=== PATIENT | male | born 1940 | race Caucasian/White ===

== ENCOUNTER 2020-09-18 15:46 | Outpatient (CLI) | payer MEDICARE, SELFPAY | END 2020-09-18 15:47 | disposition home or self-care (01) | LOC: ANHCOVIDVC 15:46 | PROVIDERS: PCP Family Medicine | DX: Z23 Encounter for immunization (principal) | CPT/HCPCS: 0001A; 91300 ==

== ENCOUNTER 2020-10-09 15:48 | Outpatient (CLI) | payer MEDICARE, SELFPAY | END 2020-10-09 15:49 | disposition home or self-care (01) | LOC: ANHCOVIDVC 15:48 | PROVIDERS: PCP Family Medicine | DX: Z23 Encounter for immunization (principal) | CPT/HCPCS: 0002A; 91300 ==

== ENCOUNTER → 2021-04-23 11:42 | Outpatient (CLI) | payer MEDICARE, SELFPAY ==
--- NOTE | ~2021-04-23 | XR_ITS ---
EXAMINATION: XR shoulder LT min 2V DATE: 04/23/2021 12:20 INDICATION: Left shoulder pain. Other enthesopathies, not elsewhere classified. TECHNIQUE: 4 views of left shoulder were obtained. COMPARISON: Left shoulder radiographs 07/04/2008 FINDINGS: Bone alignment is normal. No fracture. There is narrowing of the subacromial space, consist ent with rotator cuff tear. There is severe osteoarthritis of glenohumeral joint and acromioclavicula r joint. IMPRESSION: 1. Polyarticular osteoarthritis. 2. Rotator cuff tear. Reviewed, dictated and finalized at location A.
--- NOTE | ~2021-04-23 | XR_ITS ---
EXAMINATION: XR shoulder RT min 2V DATE: 04/23/2021 12:21 INDICATION: Other enthesopathies, not elsewhere classified. Right shoulder pain. TECHNIQUE: 4 views of right shoulder were obtained. COMPARISON: Right shoulder radiograph 01/03/2012 FINDINGS: Bone alignment is normal. No fracture. There is mild osteoarthritis of glenohumeral joint a nd severe osteoarthritis of acromioclavicular joint. IMPRESSION: 1. Polyarticular osteoarthritis. Reviewed, dictated and finalized at location A.
== END ==
PROVIDERS: PCP Family Medicine; Visit Provider Physician Assistant
DX: M77.8 Other enthesopathies, not elsewhere classified (principal); M19.012 Primary osteoarthritis, left shoulder; M19.011 Primary osteoarthritis, right shoulder; M75.102 Unspecified rotator cuff tear or rupture of left shoulder, not specified as traumatic
CPT/HCPCS: 73030

== ENCOUNTER 2022-03-11 08:56 | Outpatient (CLI) | payer MEDICARE, SELFPAY ==
--- NOTE | ~2022-03-11 | CT_ITS ---
EXAMINATION: CT shoulder LT wo con DATE: 03/11/2022 09:18 INDICATION: Rotator cuff arthropathy of left shoulder. Preop. TECHNIQUE: Computed tomography (CT) of the left shoulder was performed without intravenous contrast. Automated exposure control and iterative reconstruction technique were employed. The dose-length prod uct was 457.39 mGy-cm. COMPARISON: Left shoulder radiographs 02/01/2022. FINDINGS: The acromion undersurface is curved in morphology (type II). There is superior subluxation of humeral head with narrowing of the subacromial space and remodeling of the undersurface of the acr omion, consistent with chronic rotator cuff tear with cuff arthropathy. There is severe osteoarthriti s of acromioclavicular joint. There is severe glenohumeral joint osteoarthritis including bone volume loss of the glenoid. There is a large glenohumeral joint effusion. Supraspinatus and infraspinatus m uscle bellies are small with moderate fatty atrophy. There is mild fatty atrophy of subscapularis mus aby belly. IMPRESSION: 1. Severe glenohumeral joint osteoarthritis including bone volume loss of glenoid. 2. Severe acromioclavicular joint osteoarthritis. 3. Chronic full-thickness rotator cuff tear with cuff arthropathy. 4. Large glenohumeral joint effusion. Reviewed, dictated and finalized at location A. IMPRESSION: 1. Severe glenohumeral joint osteoarthritis including bone volume loss of gleno id. 2. Severe acromioclavicular joint osteoarthritis. 3. Chronic full-thickness rotator cuff tear with cuff arthropathy. 4. Large glenohumeral joint effusion.
== END 2022-03-11 08:57 | disposition home or self-care (01) ==
PROVIDERS: PCP Family Medicine; Visit Provider Orthopaedic Surgery
DX: M19.012 Primary osteoarthritis, left shoulder (principal); M75.102 Unspecified rotator cuff tear or rupture of left shoulder, not specified as traumatic; M25.412 Effusion, left shoulder
CPT/HCPCS: 73200

== ENCOUNTER 2022-04-01 13:42 | Outpatient (CLI) | payer MEDICARE, SELFPAY ==
--- NOTE | 2022-04-01 14:50 | ECG_ITS ---
Measurements Intervals Alexis Rate: 49 P: 83 DC: 254 QRS: 37 QRSD: 102 T: 112 QT: 443 QTc: 403 Interpretive Statements SINUS BRADYCARDIA WITH FIRST DEGREE AV BLOCK DELAYED PRECORDIAL R/S TRANSITION T WAVE ABNORMALITY IN ANTEROLATERAL LEADS- CONSIDER ISCHEMIA BASELINE ARTIFACT- I, II, III, AVR, AVL, AVF, V1-V6 ABNORMAL ECG NO PREVIOUS ECG AVAILABLE FOR COMPARISON Electronically Signed On 04-01-2022 20:50:11 CDT by Alireza Herrera D.O.
[2022-04-01 15:17] LABS: Basophils Absolute Auto 0.1 K/mm3 (0.0-0.1); Basophils Percent Auto 0.7 % (0.2-1.2); Eosinophils Absolute Auto 0.4 K/mm3 (0-0.3); Eosinophils Percent Auto 3.9 % (0-4.4); Hematocrit 41.7 % (42.0-52.0); Hemoglobin 14.9 g/dL (14.0-18.0); Immature Granulocyte Absolute 0.03 K/mm3 (0.00-0.031); Immature Granulocyte Percent A 0.3 % (0-0.5); Lymphocytes Absolute Auto 2.88 K/mm3 (0.9-3.2); Lymphocytes Percent Auto 29.1 % (18.3-44.2); Mean Corpuscular HGB Conc 35.7 g/dl (32-36); Mean Corpuscular Hemoglobin 33.3 pg (26-34); Mean Corpuscular Volume 93.1 fl (80-100); Mean Platelet Volume 10.7 fl (7.4-10.4); Monocytes Absolute Auto 0.7 K/mm3 (0.1-0.6); Monocytes Percent Auto 6.8 % (2.6-8.5); Neutrophils Absolute Auto 5.8 K/mm3 (1.3-6.7); Neutrophils Percent Auto 59.2 % (45.5-73.1); Platelet Count Result 190 k/mm3 (150-375); Red Blood Count 4.48 M/mm3 (4.6-6.20); Red Cell Distribution Width 14.6 % (11.5-14.5); White Blood Count 9.9 K/mm3 (4.5-10.0)
[2022-04-01 15:35] LABS: Anion Gap 12 mmol/L (8-16); Blood Urea Nitrogen 20 mg/dL (9-20); Calcium 9.3 mg/dL (8.4-10.2); Carbon Dioxide 28 mmol/L (22-30); Chloride 99 mmol/L (98-107); Estimated Glomerular Filt Rate > 60; Glucose 102 mg/dL (65-110); Potassium 2.9 mmol/L (3.4-5.0); Sodium 139 mmol/L (137-145)
== END 2022-04-01 13:43 | disposition home or self-care (01) ==
LOC: ANHSURGERY 13:49
PROVIDERS: Anesthesiology; Visit Provider Orthopaedic Surgery
DX: M12.812 Other specific arthropathies, not elsewhere classified, left shoulder (principal); I10 Essential (primary) hypertension; Z79.899 Other long term (current) drug therapy; Z01.818 Encounter for other preprocedural examination; I44.0 Atrioventricular block, first degree
CPT/HCPCS: 36415; 80048; 85025; 87081; 93005

== ENCOUNTER 2022-04-04 07:53 | Outpatient (CLI) | payer MEDICARE, SELFPAY ==
[2022-04-04 19:34] LABS: Anion Gap 12 mmol/L (8-16); Blood Urea Nitrogen 20 mg/dL (9-20); Calcium 9.9 mg/dL (8.4-10.2); Carbon Dioxide 29 mmol/L (22-30); Chloride 98 mmol/L (98-107); Estimated Glomerular Filt Rate > 60; Glucose 104 mg/dL (65-110); Potassium 3.4 mmol/L (3.4-5.0); Sodium 139 mmol/L (137-145)
== END 2022-04-04 07:54 | disposition home or self-care (01) ==
PROVIDERS: PCP Family Medicine; Visit Provider Family Medicine
DX: E87.6 Hypokalemia (principal)
CPT/HCPCS: 36415; 80048

== ENCOUNTER 2022-04-22 01:22 | Day surgery (SDC) | payer MEDICARE, SELFPAY ==
--- NOTE | 2022-04-01 14:03 | PC.NURSE ---
PRE-OP INSTRUCTIONS, PLEASE READ CAREFULLY Report to the Outpatient Waiting Room, entrance under the green pavilion located off [facility], at time _1000_ on date _04/22/22_. OR Time: _1200_. Time changes happen often and if your time is changed the preop area will call you the afternoon before. - You and your visitor will be asked to self-screen and do not enter if you have any COVID symptoms. - A mask is required within the hospital. - Only one visitor and NO children visitors are allowed at this time. - The patient visitor is requested to leave or wait in car when not with patient due to restrictions. - VISITING HOURS 10AM-8PM, PARK IN FRONT PARKING LOT AND USE MAIN HOSPITAL ENTRANCE Patients may have clear liquids (water, carbonated beverages, clear teas, apple juice) until 3 hours prior to surgery (0900 AM) with a maximum of 20 ounces. - No food from midnight until time of surgery Take the following medications with a SIP of water the morning of surgery: _AMLODIPINE_ Medications to discontinue per DR. LEONARDO - _ASPIRIN - 7 DAYS PRIOR TO SURGERY, Date to take last dose 04/14/22_ Medications to discontinue per ANESTHESIA - _OMEGA 3 - 3 DAYS PRIOR TO SURGERY, Date to take last dose 04/18/22 Please no deodorant, or body powder the day of surgery. No jewelry (including any body piercings) or valuables the day of surgery, leave them at home. Please take a shower or bath the night before, or the morning of, surgery with an antibacterial soap. Wear comfortable, loose fitting clothing. Children are encouraged to wear pajamas. - Jewelry must be removed prior to entering the operating room. Rings and piercings that are not removed may be cut off. - The hospital will not accept responsibility for valuables. - Please leave all valuables, including medications, at home the day of surgery. If you are going home after surgery, a licensed pile driver operator helper must drive you home. - NO public transportation without another adult. - We recommend that an adult stay with you for 24 hours following discharge. - We also recommend that you do not drive, make important decision, drink alcoholic beverages, or take any drugs that were not prescribed by your health care provider for at least 24 hours after your discharge time. Follow any additional instructions given to you from your surgeon. If you or anyone in your household have experienced Covid symptoms in the past week, please notify your surgeon or the nurse liaison at the phone number below for possible testing. Instructions given to _PT_and asked if any additional questions and then verbalized understanding. Patient advised to call surgeon office or pre surgery nurse liaison [phone] if any additional questions.
[2022-04-01 14:25] VITALS: BP 134/76; PULSE 56; RESP 20; TEMP 36.9; O2SAT 97; BMI 29.7
--- NOTE | 2022-04-19 15:22 | WPDANESEPPF ---
Anes - Initial Pre Proc Eval Procedure: Operation Date: 04/22/22 12:00 Proposed Procedures p Left Reverse Total Shoulder Arthroplasty - Mart Blank MD Date/Time: 04/19/22 15:22 Surgeon: Mart Blank MD Pre Op Diagnosis: Rot Cuff Arthropathy Left Shoulder Patient Data Age: 81 Gender: M Height: 1.68 m Weight: 83.6 kg Last Vital Signs Temp 36.9 C 04/01/22 14:25 Pulse 56 L 04/01/22 14:25 Resp 20 04/01/22 14:25 BP 134/76 04/01/22 14:25 Pulse Ox 97 04/01/22 14:25 O2 Del Method Room Air 04/01/22 14:25 Allergies Allergy/AdvReac Type Severity Reaction Status Date / Time Sulfa (Sulfonamide Allergy Intermediate Rash Verified 04/22/22 10:31 Antibiotics) Home Medications Medication Instructions Recorded Confirmed Type aspirin 81 mg tablet,delayed 81 mg PO DAILY 02/01/20 04/22/22 History release (Adult Low Dose Aspirin) magnesium oxide 400 mg PO DAILY 02/01/20 04/22/22 History pyridoxine (vitamin B6) 100 mg 100 mg PO DAILY 02/01/20 04/22/22 History tablet allopurinol 300 mg tablet See Rx Instructions .Route 09/21/21 04/22/22 Rx .COMPLEX #90 tabs amlodipine 5 mg tablet See Rx Instructions .Route 09/21/21 04/22/22 Rx .COMPLEX #90 tabs indapamide 2.5 mg tablet See Rx Instructions .Route 09/21/21 04/22/22 Rx .COMPLEX #90 tabs simvastatin 40 mg tablet See Rx Instructions .Route 09/21/21 04/22/22 Rx .COMPLEX #90 tabs omega-3 fatty acids 1,000 mg PO DAILY 04/01/22 04/22/22 History omeprazole 20 mg capsule,delayed See Rx Instructions .Route 04/03/22 04/22/22 Rx release .COMPLEX #90 caps ascorbate calcium (vitamin C) 500 600 mg PO DAILY 04/15/22 04/22/22 History mg tablet vitamin B complex 1 tablet PO DAILY 04/15/22 04/22/22 History Patient hx anesthesia problems: none Family hx anesthesia problems: none Results Review: All pre-operative results and documents have been reviewed as part of the pre-operative evaluation. FORMERLY [facility] Past Medical History Medical History (Updated 04/19/22 @ 15:23 by Edwin Jernigan MD) History of gallbladder disease Hypertension Kidney disease Mixed hyperlipidemia Pre-diabetes Surgical History Surgical History H/O heart artery stent H/O hernia repair History of tonsillectomy Family History Family History Father Family history of cardiovascular disease Family history of arthritis Patient's father is , Onset Age: 83 Sibling Family history of kidney disease Acute myocardial infarction Mother Family history of sudden Social History Social History Smoking status: Never smoker Second hand tobacco smoke exposure: No Alcohol intake: current Alcohol use details: 1 or 2 beers a year. Substance use: never Substance use type: does not use Living arrangements: with family Spiritual care concerns: No Anes - Eval Final PreProcedure Day of Procedure 04/19/22 15:22 Patient weight: obese Heart: regular rate and rhythm Lungs: clear to auscultation and normal air movement Airway: Mallampati scale class II Neurological: alert and oriented Last oral intake: >/= 8 hours ASA classification: III Emergent: no Anesthetic plan: proceed Anesthesia type and monitoring: general ETT Results Review: All pre-operative results and documents have been reviewed as part of the pre-operative evaluation. Informed Consent: The patient's anesthetic plan and its attendant risks and benefits were discussed with the patient/family/POA. Questions were solicited and answers provided to the satisfaction of the patient/family/POA.
[2022-04-22] VITALS (11 sets, daily range): BP systolic 102–121; BP diastolic 64–78; PULSE 52–68; RESP 12–20; TEMP 35.9–36.5; O2SAT 91–98
--- NOTE | ~2022-04-22 | XR_ITS ---
EXAMINATION: XR shoulder LT min 2V DATE: 04/22/2022 15:22 INDICATION: Reverse oxiq-ibi-peoezx total left shoulder arthroplasty. Postop. TECHNIQUE: 2 views of left shoulder were obtained. COMPARISON: Left shoulder radiographs 02/01/2022 FINDINGS: There is a reverse uwmy-vae-psvgij total left shoulder arthroplasty in near-anatomic alignm ent. No fracture. There is severe acromioclavicular joint osteoarthritis. There is gas in the soft ti ssues, consistent with recent surgery. A surgical drain is noted. IMPRESSION: 1. Reverse wkwn-gge-lcggev total left shoulder arthroplasty in near-anatomic alignment. Reviewed, dictated and finalized at location B. IMPRESSION: 1. Reverse yhpf-imp-qzyaty total left shoulder arthroplasty in near-anatomic al ignment.
--- NOTE | 2022-04-22 10:39 | WPDANESPNB ---
Anes - Peripheral Nerve Block Date/Time: 04/22/22 10:39 I have discussed with the patient/family/POA the placement of a peripheral nerve block for post-operative pain management, including associated risks, benefits, complications, and side effects. Alternative methods of post-operative analgesia were detailed. Questions were solicited and answers provided to the satisfaction of the patient/family/POA. Time-Out: A pre-procedural Time-Out was completed immediately before starting the procedure and confirmed: Patient Identification, Site, Procedure, Patient Position and the Availability of Requisite Equipment. Clinical Indications: Acute post-operative pain management requested by the operative surgeon. Nerve Block Insertion Note Anes-nerve block: supraclavicular left Patient position: supine Skin prep: chlorhexidine Needle: 22 gauge, stimulating, insulated echogenic needle. Needle length: 80 mm Technique: ultrasound (in plane) Injectate: bupivacaine 0.5% with epi 5 mcg/ml (20cc) Observations: tolerated well Complications: none Procedure start time:: 1200 Procedure end time:: 1205
[2022-04-22] MEDS: LACTATED RINGERS 1,000 ML 30 ML IV CONT ×2 (10:45→15:07)
[2022-04-22] MEDS: ACETAMINOPHEN 500 MG TABLET 1000 MG PO (10:51)
[2022-04-22] MEDS: TRANEXAMIC ACID 1,000MG/ISO100 1,000 MG/100 ML BAG 200 MG IVPB (11:45)
--- NOTE | 2022-04-22 11:53 | WPDHPUPDATE1 ---
History and Physical Update Update Date/Time: 04/22/22 11:53 History and Physical has been reviewed, including an updated exam of the patient. There are NO changes in the patient's condition. Risks, benefits, and alternatives have been discussed and questions answered. Patient agrees to proceed with procedure.
[2022-04-22] MEDS: ceFAZolin 2 GM/D5W 50 ML 2 GM/50 ML BAG IVPB ×2 (12:10→20:01)
[2022-04-22] MEDS: HYDROGEN PEROXIDE 3% SOLN(*SP) 473 ML BOTTLE 20 ML IRRIGATION (13:04)
[2022-04-22] MEDS: VANCOMYCIN HCL 1,000 MG VIAL 1000 MG TOPICAL (14:37)
--- NOTE | 2022-04-22 15:32 | W.PM.PROC2 ---
Procedure Note - Detailed Date of Procedure 04/22/22 Pre-op Diagnosis Rot Cuff Arthropathy Left Shoulder Post-op Diagnosis Same Procedure Performed Reverse total shoulder arthroplasty, left. Surgeon Mart Blank MD Airline Mechanic Sabrina Quiroz PA-C Anesthesia General and Regional (Interscalene block.) Findings Extensive erosive arthritis with massive rotator cuff tear. Chronic thickening of the bursa. Large osteophytes. Bone quality good. Mild to moderate superior and mild posterior erosion. Description of Procedure The patient was given an interscalene block in the preoperative area. Preoperative antibiotics were given. The patient was transferred to the operating room and a general anesthetic was administered. The beach chair position was used at 45 degrees. All bony prominences were padded. The head was carefully stabilized on the [facility] heading repairer. A sterile prep and drape was performed in the usual manner with ChloraPrep. A longitudinal incision was created at the anterior shoulder just lateral to the deltopectoral interval. Hydrogen peroxide was placed on the incision and then rinsed after one minute. Careful dissection was performed to expose the interval and protect the cephalic vein. The vein was retracted medially. A subscapularis tenotomy was performed. The inferior capsule was released, exposing the humeral head. Osteophytes were removed. Care was taken to stay on bone to protect the axillary nerve. The anatomic head cut was taken with the oscillating saw. The guide pin was placed, central drilling performed, and the broach trial inserted. The neck anteversion and inclination were carefully assessed. The cut protector was placed, and attention was turned to the glenoid. Retractors were placed. Releases were carried out for exposure. The subscapularis was mobilized, the inferior capsule and long head of triceps released, and the superior and middle glenohumeral ligaments released as well. Labral tissue was resected as needed. The sizing template was used to assess the baseplate position low on the glenoid. A guide pin was placed. Minimal reaming was used to accomplish a flat surface without violating the subchondral bone. Version was corrected according to preoperative templating. The 5 degree augment was used at 01:00 o'clock. Slight eccentric reaming was performed to increase inferior tilt another 5?. The boss was drilled, and the real component was impacted into position. Supplemental locking screws were placed centrally, superiorly, and inferiorly. The glenosphere was impacted into the taper. The proximal humerus was reamed for the inset component. The humeral components were trialed. The real humeral stem, tray, and insert were impacted into position. The shoulder was copiously irrigated periodically with pulsatile lavage. The shoulder was reduced and stability confirmed. 1 gram of Vancomycin powder was placed in the joint. The biceps tenodesis was incorporated with the pectoralis tendon repair. The deltopectoral space was reapproximated with number 1 Vicryl. The remaining tissue was closed with 0 Quill and 2-0 Quill running suture and steri-strips. A sterile silver occlusive dressing and shoulder immobilizer were placed. The patient was transferred to the recovery room. Physician medical library assistant, Sabrina Quiroz PA-C, required for surgery; including patient positioning, draping, tissue retraction, maintaining instrument position, wound closure, and dressing placement. Implants Shoulder Innovations reverse TSA size 1 stem. +3 polyethylene insert. +6mm 5 degree augmented baseplate. 36 mm glenosphere. Estimated Blood Loss 100 Drains No Pathology None sent Complications No immediate complications Condition Stable Disposition PACU [facility] Billing Surgery - Charge Forward: Surgery Billing
--- NOTE | 2022-04-22 16:09 | SUR.PHASEI ---
Floor RN has to call back for report.
[2022-04-22] MEDS: SENNA/DOCUSATE SODIUM TABLET 2 TAB PO (18:11)
[2022-04-22] MEDS: allopurinoL 300 MG TABLET PO (18:11)
[2022-04-22] MEDS: SIMVASTATIN 20 MG TABLET 40 MG PO (18:11)
[2022-04-22] MEDS: INDAPAMIDE 2.5 MG TABLET PO (18:11)
[2022-04-22] MEDS: ASPIRIN 81 MG ENTERIC TABLET PO (20:02)
[2022-04-23 01:09] VITALS: BP 122/60; PULSE 61; RESP 18; TEMP 36.5; O2SAT 95
[2022-04-23] MEDS: ceFAZolin 2 GM/D5W 50 ML 2 GM/50 ML BAG IVPB ×2 (04:16→11:21)
[2022-04-23 05:06] LABS: Basophils Percent Auto 0.2 % (0.2-1.2); Hematocrit 39.1 % (42.0-52.0); Hemoglobin 13.6 g/dL (14.0-18.0); Immature Granulocyte Absolute 0.08 K/mm3 (0.00-0.031); Immature Granulocyte Percent A 0.5 % (0-0.5); Lymphocytes Absolute Auto 1.44 K/mm3 (0.9-3.2); Lymphocytes Percent Auto 9.5 % (18.3-44.2); Mean Corpuscular HGB Conc 34.8 g/dl (32-36); Mean Corpuscular Hemoglobin 32.5 pg (26-34); Mean Corpuscular Volume 93.3 fl (80-100); Mean Platelet Volume 10.2 fl (7.4-10.4); Monocytes Absolute Auto 0.7 K/mm3 (0.1-0.6); Monocytes Percent Auto 4.9 % (2.6-8.5); Neutrophils Absolute Auto 12.9 K/mm3 (1.3-6.7); Neutrophils Percent Auto 84.9 % (45.5-73.1); Platelet Count Result 209 k/mm3 (150-375); Red Blood Count 4.19 M/mm3 (4.6-6.20); Red Cell Distribution Width 13.9 % (11.5-14.5); White Blood Count 15.2 K/mm3 (4.5-10.0)
[2022-04-23 05:14] VITALS: BP 126/72; PULSE 63; RESP 16; TEMP 36.7; O2SAT 96
[2022-04-23 05:19] LABS: Anion Gap 12 mmol/L (8-16); Blood Urea Nitrogen 14 mg/dL (9-20); Calcium 8.8 mg/dL (8.4-10.2); Carbon Dioxide 27 mmol/L (22-30); Chloride 96 mmol/L (98-107); Estimated CRCL calculation 45 ml/min; Estimated Glomerular Filt Rate > 60; Glucose 139 mg/dL (65-110); Potassium 3.7 mmol/L (3.4-5.0); Sodium 135 mmol/L (137-145)
[2022-04-23] MEDS: allopurinoL 300 MG TABLET PO (09:20)
[2022-04-23] MEDS: MAGNESIUM OXIDE 400 MG TABLET PO (09:20)
[2022-04-23] MEDS: SENNA/DOCUSATE SODIUM TABLET 2 TAB PO (09:20)
[2022-04-23] MEDS: amLODIPine BESYLATE 5 MG TABLET PO (09:20)
[2022-04-23] MEDS: PANTOPRAZOLE 40 MG TABLET PO (09:20)
[2022-04-23] MEDS: INDAPAMIDE 2.5 MG TABLET PO (09:20)
[2022-04-23] MEDS: SIMVASTATIN 20 MG TABLET 40 MG PO (09:20)
[2022-04-23] MEDS: polyethylene glycoL 3350 17 GM POWD.PACK PO (09:22)
--- NOTE | 2022-04-23 09:50 | PM.DS ---
DS: Admitting Diagnosis Discharge Date 04/23/22 Admitting Diagnosis Left shoulder rotator cuff arthropathy. DS: Discharge Diagnosis Discharge Diagnosis (1) Status post reverse total arthroplasty of left shoulder: Code(s): Z96.612 - Presence of left artificial shoulder joint Status: Acute Assessment and Plan: Postop day 1: Left reverse total shoulder arthroplasty. Patient tolerated procedure well. No complications. Pain manageable with pain medication. No numbness or tingling. Drain removed. We had a lengthy discussion regarding postoperative wound care, limitations, expectations, and exercises. Patient shows good understanding. He has had initial physical therapy and is tolerating it well. DVT prophylaxis: Continue normal dose of aspirin. Pain medication: Percocet. Patient has followup appointment with Dr. Blank in 3 weeks. DS: Summary Hospital Course Hospital Course: Patient tolerated procedure well. Has had initial PT/OT. Drain removed. Status at Discharge Functional status at discharge: independent ambulation Overall status at discharge: patient is progressing back to baseline Time Spent with Patient Time attestation: Total time spent providing and/or coordinating discharge services: Exam Narrative: Overweight 81 y/o male. Resting comfortably in bed. Wearing sling. Dressing dry and intact with no drainage. Drain removed. Mild swelling. No ecchymosis. No erythema. No hematoma. Range of motion limited due to pain. Neurologic status intact. No varicosities. Distal pulses palpable. DS: Data Data Completed and Pending Labs on day of discharge: Labs from last 24 hours 04/23/22 04/23/22 04/22/22 04:52 04:52 10:28 WBC 15.2 H RBC 4.19 L Hgb 13.6 L Hct 39.1 L MCV 93.3 MCH 32.5 MCHC 34.8 RDW 13.9 Plt Count 209 MPV 10.2 Immature Gran % (Auto) 0.5 Neut % (Auto) 84.9 H Lymph % (Auto) 9.5 L Callahan % (Auto) 4.9 Eos % (Auto) 0.0 Baso % (Auto) 0.2 Lymph # (Auto) 1.44 Callahan # (Auto) 0.7 H Eos # (Auto) 0.0 Baso # (Auto) 0.0 Abs Immat Gran (auto) 0.08 H Absolute Neuts (auto) 12.9 H Absolute Nucleated RBC 0.0 Nucleated RBC % 0.0 Sodium 135 L Potassium 3.7 Chloride 96 L Carbon Dioxide 27 Anion Gap 12 BUN 14 D Creatinine 1.00 Estim Creat Clear Calc 45 Estimated GFR > 60 Glucose 139 H Calcium 8.8 Blood Type O Positive Antibody Screen Negative Discharge Plan Discharge Patient Disposition: Home, Self-Care Discharge Instructions: See green instruction sheets. Stand Alone Forms: General Discharge Instructions Follow-up/Referrals: Sabrina Quiroz PA [Physician Data Engineer] - Discharge Medications: New oxycodone-acetaminophen 5-325 mg tablet 1 - 2 tablet PO Q4-6H MDD 6 PRN (Reason: pain) Qty: 30 0RF Continued pyridoxine (vitamin B6) 100 mg tablet 100 mg PO DAILY aspirin [Adult Low Dose Aspirin] 81 mg tablet,delayed release (DR/EC) 81 mg PO DAILY Label Comments: HS magnesium oxide 400 mg magnesium tablet 400 mg PO DAILY ascorbate calcium (vitamin C) 500 mg tablet 600 mg PO DAILY vitamin B complex Tablet 1 tablet PO DAILY Label Comments: in morning omega-3 fatty acids Capsule 1,000 mg PO DAILY indapamide 2.5 mg tablet See Rx Instructions .ROUTE .COMPLEX Qty: 90 3RF Dose Instruction: TAKE 1 TABLET DAILY Rx Instructions: TAKE 1 TABLET DAILY allopurinol 300 mg tablet See Rx Instructions .ROUTE .COMPLEX Qty: 90 3RF Dose Instruction: TAKE 1 TABLET DAILY Rx Instructions: TAKE 1 TABLET DAILY amlodipine 5 mg tablet See Rx Instructions .ROUTE .COMPLEX Qty: 90 3RF Dose Instruction: TAKE 1 TABLET DAILY Rx Instructions: TAKE 1 TABLET DAILY simvastatin 40 mg tablet See Rx Instructions .ROUTE .COMPLEX Qty: 90 3RF
[2022-04-23 10:36] VITALS: BP 124/74; PULSE 64; RESP 16; TEMP 36.4; O2SAT 97
--- NOTE | 2022-04-23 14:36 | P.PNAN_ITS ---
Anes - Prog Note Post-Op Date/Time: 04/23/22 14:36 Cardiovascular status: normal Respiratory status: normal Airway patency: baseline Mental status: baseline Post-Op hydration status: normal Vital Signs: Last Vital Signs Temp 97.6 F 04/23/22 10:36 Pulse 64 04/23/22 10:36 Resp 16 04/23/22 10:36 BP 124/74 04/23/22 10:36 Pulse Ox 97 04/23/22 10:36 O2 Del Method Room Air 04/23/22 09:46 O2 Flow Rate 8 04/22/22 15:35 Pain Score (VAS): 07/30 I/O: Intake & Output 04/22/22 04/23/22 04/23/22 23:59 07:59 15:59 Intake Total 620 600 410 Output Total 180 60 Balance 620 420 350 Laboratory Tests 04/23/22 04:52 04/23/22 04:52 04/23/22 04/23/22 04:52 04:52 WBC 15.2 H RBC 4.19 L Hgb 13.6 L Hct 39.1 L MCV 93.3 MCH 32.5 MCHC 34.8 RDW 13.9 Plt Count 209 MPV 10.2 Immature Gran % (Auto) 0.5 Neut % (Auto) 84.9 H Lymph % (Auto) 9.5 L Buchanan % (Auto) 4.9 Eos % (Auto) 0.0 Baso % (Auto) 0.2 Lymph # (Auto) 1.44 Buchanan # (Auto) 0.7 H Eos # (Auto) 0.0 Baso # (Auto) 0.0 Abs Immat Gran (auto) 0.08 H Absolute Neuts (auto) 12.9 H Absolute Nucleated RBC 0.0 Nucleated RBC % 0.0 Sodium 135 L Potassium 3.7 Chloride 96 L Carbon Dioxide 27 Anion Gap 12 BUN 14 D Creatinine 1.00 Estim Creat Clear Calc 45 Estimated GFR > 60 Glucose 139 H Calcium 8.8 Post-procedural complaints: none Patient Feedback: Patient satisfied with anesthetic care.
== END 2022-04-23 14:15 | disposition home or self-care (01) ==
LOC: ANHSURGERY 09:59 → ANH2MED 16:19
PROVIDERS: Physician Assistant Surgical; PCP Emergency Medicine; Visit Provider Orthopaedic Surgery
PROC: (CPT 23472; principal; 2022-04-22 12:00)
DX: M12.812 Other specific arthropathies, not elsewhere classified, left shoulder (principal); M25.712 Osteophyte, left shoulder; G89.18 Other acute postprocedural pain; I10 Essential (primary) hypertension; E78.2 Mixed hyperlipidemia; N28.9 Disorder of kidney and ureter, unspecified; R73.03 Prediabetes; Z95.5 Presence of coronary angioplasty implant and graft; E66.9 Obesity, unspecified; Z68.28 Body mass index [BMI] 28.0-28.9, adult; Z79.82 Long term (current) use of aspirin
CPT/HCPCS: 23472; 64415; 36415; 73030; 80048; 85025; 86850; 86900; 86901; 97110; 97161; 97165; 97535; A4565; A9270; J0131; J0171; J0690; J1100; J2250; J2270; J2405; J2704; J2795; J3370; J7120

== ENCOUNTER 2022-10-07 09:21 | Outpatient (CLI) | payer MEDICARE, SELFPAY ==
--- NOTE | 2022-10-07 11:00 | NEURO_ITS ---
Impression: # Complains of numbness of left hand. # Severe left Carpal Tunnel Syndrome. # Mild left ulnar neuropathy across the elbow. 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 Motor Nerve Conduction Upper Extremities Median Nerve Conduction Velocity (m/sec) Terminal Latency (msec) Response Voltage(mV) Elbow-Wrist Wrist Elbow Wrist Right Left 114 13.4 .9 .4 Ulnar Nerve Conduction Velocity (m/sec) Terminal Latency (msec) Response Voltage(mV) Above Elbow Below Elbow Wrist Above Elbow Below Elbow Wrist Right Left 45 55 3.0 4 4 5 F-Wave Latency Median (ms) Ulnar (ms) Right Left 32.3 28.8 Sensory Nerve Conduction Upper Extremities Median Nerve Stimulation Terminal Latency (msec) Wrist/Digit Response Voltage (uV) Wrist Right Left 7.1/7.2 7/10 Ulnar Nerve Stimulation Terminal Latency (msec) Wrist/Digit Response Voltage (uV) Wrist Right Left 2.9 14 Radial Nerve Terminal Latency (msec) Response Voltage(mV) Right Left 2.3 9 Left Right Muscles Examined Fibrillation Fasciculation Scarcity Voltage Duration Left Right Left Right Left Right Left Right Left Right Deltoid Biceps X Brachioradialis Triceps X Pronator Teres X Ext Indicis X Ext Digitorum X Abd Poll Brev ++ + Reduced Decreased >12ms X 1st Dorsal Interosseus X Abd Dig Min Reduced >12ms MTDD
== END 2022-10-07 09:22 | disposition home or self-care (01) ==
LOC: ANHNEURO 09:23
PROVIDERS: PCP Emergency Medicine; Visit Provider Physician Assistant Surgical
DX: R20.0 Anesthesia of skin (principal); G56.02 Carpal tunnel syndrome, left upper limb; G56.22 Lesion of ulnar nerve, left upper limb
CPT/HCPCS: 95886; 95909

== ENCOUNTER 2022-11-19 01:11 | Day surgery (SDC) | payer MEDICARE, SELFPAY ==
[2022-11-08 13:16] VITALS: BMI 28.3
--- NOTE | 2022-11-08 13:25 | PC.NURSE ---
Report to the Outpatient Waiting Room, entrance under the green pavilion located off [facility], at time _1200__ on date _11/19/22_. Planned Procedure Time: __2PM . Time changes happen often and if your time is changed the preop area will call you the afternoon before. - You and your visitor will be asked to self-screen and do not enter if you have any COVID symptoms. - A mask is optional within the hospital at this time. Patients may have clear liquids (water, carbonated beverages, clear teas, apple juice) until 3 hours prior to surgery (1100 AM) with a maximum of 20 ounces. - No food from midnight until time of surgery - Infants may have breast milk until 4 hours before surgery, formula 6 hours prior to surgery. - Children will be allowed to drink immediately following surgery. If applicable, please bring a bottle or sippy cup to assist with drinking. Juice, water, soda, and popsicles are readily available. For infants on formula, please bring formula the day of surgery. Pacifiers are allowed. Take the following medications with a SIP of water the morning of surgery: DO NOT STOP ANY OF YOUR OTHER PRESCRIPTION MEDICATIONS PRIOR TO SURGERY ?EXCEPT THE FOLLOWING Medications to discontinue per DR. LEONARDO - _ASPIRIN 7 DAYS PRIOR TO SURGERY, Date to take last dose 11/11/22_ Medications to discontinue per ANESTHESIA - _VITAMINS/SUPPLEMENTS 3 DAYS PRIOR TO SURGERY, Date to take last dose 11/15/22_ Please no make-up, nail dutch, hairspray, perfume, deodorant, or body powder the day of surgery. No jewelry (including any body piercings) or valuables the day of surgery, leave them at home. Please take a shower or bath the night before, or the morning of, surgery with an antibacterial soap. Wear comfortable, loose fitting clothing. Children are encouraged to wear pajamas. - Jewelry must be removed prior to entering the operating room. Rings and piercings that are not removed may be cut off. - The hospital will not accept responsibility for valuables. - Please leave all valuables, including medications, at home the day of surgery. If you are going home after surgery, a licensed van driver must drive you home. - NO public transportation without another adult if you receive anesthesia. - We recommend that an adult stay with you for 24 hours following discharge. - We also recommend that you do not drive, make important decision, drink alcoholic beverages, or take any drugs that were not prescribed by your health care provider for at least 24 hours after your discharge time. For Pediatric surgeries, we recommend two adults accompany the child home. Follow any additional instructions given to you from your surgeon. If you or anyone in your household have experienced Covid symptoms in the past week, please notify your surgeon or the nurse liaison at the phone number below for possible testing. Telephone instructions given to _PT'S SPOUSE (ARMANDO)_and asked if any additional questions and then verbalized understanding. Patient advised to call surgeon office or pre surgery nurse liaison [phone] if any additional questions.
--- NOTE | 2022-11-18 15:29 | WPDANESEPPF ---
Anes - Initial Pre Proc Eval Procedure: Operation Date: 11/19/22 14:00 Proposed Procedures p Left Carpal Tunnel Release - Mart Blank MD Date/Time: 11/18/22 15:29 Surgeon: Mart Blank MD Pre Op Diagnosis: Lt Carpal Tunnel Syn Patient Data Age: 82 Gender: M Height: 1.68 m Weight: 79.5 kg Allergies Allergy/AdvReac Type Severity Reaction Status Date / Time Sulfa (Sulfonamide Allergy Intermediate Rash Verified 10/21/22 08:14 Antibiotics) Home Medications Medication Instructions Recorded Confirmed Type aspirin 81 mg tablet,delayed 81 mg PO DAILY 02/01/20 11/08/22 History release (Adult Low Dose Aspirin) magnesium oxide 400 mg PO DAILY 02/01/20 11/08/22 History pyridoxine (vitamin B6) 100 mg 100 mg PO DAILY 02/01/20 11/08/22 History tablet omega-3 fatty acids 1,000 mg PO DAILY 04/01/22 11/08/22 History ascorbate calcium (vitamin C) 500 600 mg PO DAILY 04/15/22 11/08/22 History mg tablet vitamin B complex 1 tablet PO DAILY 04/15/22 11/08/22 History allopurinol 300 mg tablet See Rx Instructions .Route 09/24/22 11/08/22 Rx .COMPLEX #90 tabs amlodipine 5 mg tablet See Rx Instructions .Route 09/24/22 11/08/22 Rx .COMPLEX #90 tabs indapamide 2.5 mg tablet See Rx Instructions .Route 09/24/22 11/08/22 Rx .COMPLEX #90 tabs simvastatin 40 mg tablet See Rx Instructions .Route 09/24/22 11/08/22 Rx .COMPLEX #90 tabs omeprazole 20 mg capsule,delayed See Rx Instructions .Route 10/02/22 11/08/22 Rx release .COMPLEX #90 caps ketoconazole 2 %-hydrocortisone See Rx Instructions topical 10/15/22 11/08/22 Rx 2.5 % topical cream .COMPLEX #30 grams hydrocodone 5 mg-acetaminophen 325 1 - 2 tablet PO Q4-6H PRN pain #30 11/19/22 Rx mg tablet tabs Patient hx anesthesia problems: none Family hx anesthesia problems: none Results Review: All pre-operative results and documents have been reviewed as part of the pre-operative evaluation. [facility] Past Medical History Medical History (Updated 11/19/22 @ 07:54 by SAM Boone) CAD (coronary artery disease) History of gallbladder disease Hypertension Kidney disease Mixed hyperlipidemia Pre-diabetes Surgical History Surgical History H/O heart artery stent H/O hernia repair History of reverse total replacement of left shoulder joint (~04/22/22) History of tonsillectomy Family History Family History Father Family history of cardiovascular disease Family history of arthritis Patient's father is , Onset Age: 83 Sibling Family history of kidney disease Acute myocardial infarction Mother Family history of sudden Social History Social History Smoking status: Never smoker Second hand tobacco smoke exposure: No Alcohol intake: current Alcohol use details: 1-2 BEERS/YEAR Substance use: never Substance use type: does not use Lack of Transportation: No Lack of Food: Never True Current Housing: I Have Housing Concerned About Future Housing: No Difficulty Paying Gas/Electric Bills: No Difficulty Paying for Meds: No Currently Unemployed: No Education: High School Diploma/GED Difficulty w/ Childcare or Family Care: No Living arrangements: with family Spiritual care concerns: No Anes - Eval Final PreProcedure Day of Procedure 11/18/22 15:29 Patient weight: obese Heart: regular rate and rhythm Lungs: clear to auscultation and normal air movement Airway: Mallampati scale class II Neurological: alert and oriented Last oral intake: >/= 8 hours ASA classification: III Emergent: no Anesthetic plan: proceed Anesthesia type and monitoring: general GIVS and LMA Results Review: All pre-operative results and documents have been reviewed as part of the pre-operative e
[2022-11-19] VITALS (7 sets, daily range): BP systolic 110–136; BP diastolic 71–87; PULSE 51–67; RESP 12–18; TEMP 36.3–36.4; O2SAT 94–99
--- NOTE | 2022-11-19 10:43 | WPDHPUPDATE1 ---
History and Physical Update Update Date/Time: 11/19/22 10:43 History and Physical has been reviewed, including an updated exam of the patient. There are NO changes in the patient's condition. Risks, benefits, and alternatives have been discussed and questions answered. Patient agrees to proceed with procedure.
[2022-11-19] MEDS: KETOROLAC 15 MG/ML VIAL (*BKC) IV PUSH (13:00)
[2022-11-19] MEDS: ACETAMINOPHEN 500 MG TABLET 1000 MG PO (13:00)
[2022-11-19] MEDS: LACTATED RINGERS 1,000 ML 30 ML IV CONT (13:00)
[2022-11-19] MEDS: ceFAZolin 2 GM/D5W 50 ML 2 GM/50 ML BAG IVPB (13:55)
--- NOTE | 2022-11-19 13:59 | W.PM.PROC2 ---
Procedure Note - Detailed Date of Procedure 11/19/22 Pre-op Diagnosis Lt Carpal Tunnel Syndrome Post-op Diagnosis Same Procedure Performed Left Carpal tunnel release Surgeon Mart Blank MD Anesthesia General Description of Procedure Operative details. After sedation was administer, the hand was prepped and draped in the usual sterile fashion. The proposed incision was marked using typical anatomic landmarks. 5ML 0.5% Marcaine with epinephrine was injected along the incision line and at the distal forearm. The limb was exsanguinated and the tourniquet inflated to 250 millimeters of mercury. A longitudinal incision was taken sharply. Dissection was brought down to the transverse carpal ligament. Under direct vision the ligament was incised sharply. The proximal release was carried out with dissection scissors. The contents of the carpal canal were protected with a [place] elevator. The transverse carpal ligament was confirmed to be widely patent. The wound was closed with interrupted 3-0 Prolene suture. A sterile bulky dressing was placed. Patient was brought to the recovery room in stable condition. Estimated Blood Loss 1 Tourniquet Time 6 Pathology None sent Complications No immediate complications Condition Stable Disposition PACU [facility] Billing Surgery - Charge Forward: Surgery Billing
[2022-11-19] MEDS: BUPIVACAINE/EPINEPHRINE 0.5% 50 ML VIAL INFILTRATE (14:13)
== END 2022-11-19 16:00 | disposition home or self-care (01) ==
PROVIDERS: PCP Emergency Medicine; Visit Provider Orthopaedic Surgery
PROC: (CPT 64721; principal; 2022-11-19 14:00)
DX: G56.02 Carpal tunnel syndrome, left upper limb (principal); I25.10 Atherosclerotic heart disease of native coronary artery without angina pectoris; I10 Essential (primary) hypertension; E78.2 Mixed hyperlipidemia; R73.03 Prediabetes; Z79.82 Long term (current) use of aspirin; E66.9 Obesity, unspecified; Z68.29 Body mass index [BMI] 29.0-29.9, adult
CPT/HCPCS: 64721; A9270; J0690; J1100; J1885; J2405; J2704; J3010; J7120

== ENCOUNTER 2023-04-03 11:15 | Outpatient (CLI) | payer MEDICARE, SELFPAY ==
[2023-04-04 13:01] LABS: Prostate Specific Antigen 25.1 ng/mL (< OR = 4.0)
== END 2023-04-03 11:16 | disposition home or self-care (01) ==
PROVIDERS: PCP Emergency Medicine; Visit Provider Emergency Medicine
DX: Z12.5 Encounter for screening for malignant neoplasm of prostate (principal)
CPT/HCPCS: 36415; 84153; G0103

== ENCOUNTER 2023-04-03 11:27 | Outpatient (CLI) | payer MEDICARE, SELFPAY ==
[2023-04-03 17:08] LABS: Hemoglobin A1C 5.1 % (<5.7)
[2023-04-03 17:11] LABS: Alanine Aminotransferase 27 U/L (6-50); Albumin Level 4.1 g/dL (3.5-5.1); Alkaline Phosphatase 63 U/L (38-126); Anion Gap 7 mmol/L (8-16); Aspartate Amino Transferase 61 U/L (17-59); Bilirubin,Total 0.7 mg/dL (0.2-1.3); Blood Urea Nitrogen 14 mg/dL (9-20); Calcium 9.3 mg/dL (8.4-10.2); Carbon Dioxide 32 mmol/L (22-30); Chloride 100 mmol/L (98-107); Cholesterol 131 mg/dL (0-200); Estimated Glomerular Filt Rate > 60; Glucose 102 mg/dL (65-110); HDL Direct 29 mg/dL; Potassium 3.6 mmol/L (3.4-5.0); Sodium 139 mmol/L (137-145); Triglycerides 251 mg/dL (<150)
[2023-04-03 17:18] LABS: Hematocrit 40.7 % (42.0-52.0); Mean Corpuscular HGB Conc 34.4 g/dl (32-36); Mean Corpuscular Hemoglobin 33.3 pg (26-34); Mean Corpuscular Volume 96.7 fl (80-100); Platelet Count Result 203 k/mm3 (150-375); Red Blood Count 4.21 M/mm3 (4.6-6.20); Red Cell Distribution Width 14.3 % (11.5-14.5); White Blood Count 8.9 K/mm3 (4.5-10.0)
[2023-04-03 17:22] LABS: LDL Cholesterol Direct 66 mg/dL
== END 2023-04-03 11:28 | disposition home or self-care (01) ==
PROVIDERS: PCP Emergency Medicine; Visit Provider Physician Assistant
DX: E78.2 Mixed hyperlipidemia (principal); R73.01 Impaired fasting glucose; E87.6 Hypokalemia; I25.10 Atherosclerotic heart disease of native coronary artery without angina pectoris; I10 Essential (primary) hypertension
CPT/HCPCS: 36415; 80053; 80061; 83036; 84153; 84443; 85027; G0103

== ENCOUNTER → 2023-04-03 11:54 | Outpatient (CLI) | payer MEDICARE, SELFPAY ==
--- NOTE | ~2023-04-03 | US_ITS ---
US renal BI 04/03/2023 12:18 Procedure: Realtime transabdominal ultrasound of the kidneys and bladder. Indication: Family history of polycystic kidney disease Comparison: No prior studies for comparison. Findings: Renal echotexture is normal bilaterally without contour deforming mass or renal calculus. T here is mild left hydronephrosis. There is a right renal cyst measuring 2.2 cm. The right kidney yeyo ures 10.4 cm cm and left kidney measures 12.1 cm cm. Bladder within normal limits. Incidental note i s made of infrarenal abdominal aortic aneurysm measuring 7.1 cm. Impression: 1: Mild left hydronephrosis. 2: Infrarenal abdominal aortic aneurysm measuring 7.1 cm. Reviewed, dictated and finalized at location L. Impression: 1: Mild left hydronephrosis. 2: Infrarenal abdominal aortic aneurysm measuring 7.1 cm.
== END ==
PROVIDERS: PCP Emergency Medicine; Visit Provider Physician Assistant
DX: I71.43 Infrarenal abdominal aortic aneurysm, without rupture (principal); Z82.71 Family history of polycystic kidney; N13.30 Unspecified hydronephrosis
CPT/HCPCS: 76775

== ENCOUNTER → 2023-04-03 11:57 | Outpatient (CLI) | payer MEDICARE, SELFPAY ==
--- NOTE | ~2023-04-03 | XR_ITS ---
EXAMINATION: XR lumbar spine min 4V DATE: 04/03/2023 12:26 INDICATION: Low back pain TECHNIQUE: Anteroposterior, lateral, and bilateral oblique views of the lumbar spine, and cone-down l ateral view of the lumbosacral junction were obtained. COMPARISON: 02/12/2010 FINDINGS: There are 7 mm of anterolisthesis of L4 on L5. The vertebral body heights are maintained. T here is no fracture. There is severe loss of intervertebral disc space height at L1-2, L2-3, and L5-S 1 and moderate loss of disc space height at L3-4 and L4-5. There is multilevel severe facet joint ost eoarthritis. Surgical clips in the right upper quadrant are likely from prior cholecystectomy. There is moderate to severe osteoarthritis of the left hip. IMPRESSION: 1. Severe lumbar spondylosis without acute findings. Reviewed, dictated and finalized at location F.
--- NOTE | ~2023-04-03 | XR_ITS ---
EXAMINATION: XR sacrum coccyx min 2V INDICATION: Low back pain TECHNIQUE: Three views of the sacrum and coccyx are obtained. COMPARISON: None available FINDINGS: Bone alignment is normal. There is no fracture. There is severe spondylosis of the lower merry mbar spine. There is moderate to severe left and mild right hip osteoarthritis. Phleboliths are noted in the pelvis. No abnormal sclerosis or erosion of the sacroiliac joints. IMPRESSION: 1. No acute osseous abnormality. 2. Severe lower lumbar spondylosis. 3. Bilateral hip osteoarthritis. Reviewed, dictated and finalized at location F.
== END ==
PROVIDERS: PCP Emergency Medicine; Visit Provider Emergency Medicine
DX: M53.3 Sacrococcygeal disorders, not elsewhere classified (principal); M47.896 Other spondylosis, lumbar region; M16.0 Bilateral primary osteoarthritis of hip
CPT/HCPCS: 72110; 72220

== ENCOUNTER 2023-04-07 07:57 | Outpatient (CLI) | payer MEDICARE, SELFPAY ==
[2023-04-10 18:31] LABS: PSA, Free 2.83 ng/mL; PSA, Total 18.5 ng/mL (<=4.0)
== END 2023-04-07 07:58 | disposition home or self-care (01) ==
PROVIDERS: PCP Emergency Medicine; Visit Provider Emergency Medicine
DX: R97.20 Elevated prostate specific antigen [PSA] (principal); I10 Essential (primary) hypertension; I25.10 Atherosclerotic heart disease of native coronary artery without angina pectoris; E78.2 Mixed hyperlipidemia; E87.6 Hypokalemia; R73.01 Impaired fasting glucose
CPT/HCPCS: 36415; 84153; 84154

== ENCOUNTER 2023-04-30 08:20 | Observation (INO) | payer MEDICARE, SELFPAY ==
[2023-04-30] VITALS (29 sets, daily range): BP systolic 100–142; BP diastolic 61–107; PULSE 55–68; RESP 14–25; TEMP 36.1–36.4; O2SAT 91–98; BMI 34.6
--- NOTE | ~2023-04-30 | CT_ITS ---
EXAMINATION: CT soft tissue neck w con DATE: 04/30/2023 11:03 INDICATION: Tongue swelling. TECHNIQUE: Computed tomography (CT) of the neck was performed with 75 mL Omnipaque-350 intravenous co ntrast. Automated exposure control and iterative reconstruction technique were employed. The dose-rajinder gth product was 577.62 mGy-cm. COMPARISON: None FINDINGS: There are no pathologically enlarged lymph nodes. There is plaque in the proximal internal carotid arteries with less than 50% stenosis relative to normal distal artery lumen diameters. There are no pathologically enlarged lymph nodes. There is fat stranding in the submandibular region. The p harynx and larynx are unremarkable. The epiglottis is normal. There is severe cervical spondylosis. IMPRESSION: 1. Fat stranding in the submandibular region, consistent with inflammation versus edema. Reviewed, dictated and finalized at location A. IMPRESSION: 1. Fat stranding in the submandibular region, consistent with inflammation vers us edema.
[2023-04-30] MEDS: EPINEPHrine HCL INJ 1 MG/ML AMPUL 0.3 MG IM (08:43)
[2023-04-30] MEDS: methylPREDNISolone SOD SUCC 125 MG VIAL IV PUSH (08:45)
[2023-04-30] MEDS: FAMOTIDINE 20 MG/2 ML VIAL IV PUSH (08:45)
[2023-04-30] MEDS: diphenhydrAMINE HCl INJ 50 MG/ML VIAL IV PUSH (08:45)
[2023-04-30 08:47] LABS: Basophils Absolute Auto 0.1 K/mm3 (0.0-0.1); Basophils Percent Auto 0.4 % (0.2-1.2); Eosinophils Absolute Auto 0.3 K/mm3 (0-0.3); Eosinophils Percent Auto 2.1 % (0-4.4); Hemoglobin 14.1 g/dL (14.0-18.0); Immature Granulocyte Absolute 0.05 K/mm3 (0.00-0.031); Immature Granulocyte Percent A 0.4 % (0-0.5); Lymphocytes Absolute Auto 2.44 K/mm3 (0.9-3.2); Lymphocytes Percent Auto 19.3 % (18.3-44.2); Mean Corpuscular HGB Conc 35.3 g/dl (32-36); Mean Corpuscular Hemoglobin 33.3 pg (26-34); Mean Corpuscular Volume 94.3 fl (80-100); Mean Platelet Volume 10.9 fl (7.4-10.4); Monocytes Absolute Auto 0.9 K/mm3 (0.1-0.6); Monocytes Percent Auto 6.7 % (2.6-8.5); Neutrophils Percent Auto 71.1 % (45.5-73.1); Platelet Count Result 164 k/mm3 (150-375); Red Blood Count 4.24 M/mm3 (4.6-6.20); Red Cell Distribution Width 14.4 % (11.5-14.5); White Blood Count 12.6 K/mm3 (4.5-10.0)
[2023-04-30 09:02] LABS: Prothrombin Time 13.9 Seconds (11.1-14.7)
[2023-04-30 09:03] LABS: Partial Thromboplastin Time 30.2 SECONDS (22.3-36.8)
[2023-04-30 09:06] LABS: Alanine Aminotransferase 22 U/L (6-50); Albumin Level 4.4 g/dL (3.5-5.1); Alkaline Phosphatase 70 U/L (38-126); Anion Gap 7 mmol/L (8-16); Aspartate Amino Transferase 40 U/L (17-59); Bilirubin,Total 1.7 mg/dL (0.2-1.3); Blood Urea Nitrogen 12 mg/dL (9-20); Calcium 8.9 mg/dL (8.4-10.2); Carbon Dioxide 30 mmol/L (22-30); Chloride 99 mmol/L (98-107); Estimated CRCL calculation 51 ml/min; Estimated Glomerular Filt Rate > 60; Glucose 112 mg/dL (65-110); Potassium 3.1 mmol/L (3.4-5.0); Sodium 136 mmol/L (137-145)
--- NOTE | 2023-04-30 09:56 | ED.ALLEREA ---
HPI - Allergic Reaction General Chief complaint: Allergic Reaction Stated complaint: tongue swelling Time Seen by Provider: 04/30/23 08:29 Source: patient and RN notes reviewed Mode of arrival: ambulatory Limitations: no limitations History of Present Illness HPI narrative: This is an 82 year old male with history of hypertension, hyperlipidemia who presents for evaluation of tongue swelling. He states his tongue swelling started on Friday. He states swelling has gradually gotten worse. He is able to drink water but he states he is having more difficulty swallowing . He denies chest pain or shortness of breath. He reports he had tooth pulled by dentist last Friday. He denies history of angioedema. Denies new exposures. He does not take LANIE inhibitor Related Data Home Medications Medication Instructions Recorded Confirmed aspirin 81 mg tablet,delayed 81 mg PO DAILY 02/01/20 04/03/23 release (Adult Low Dose Aspirin) omega-3 fatty acids 1,000 mg PO DAILY 04/01/22 04/03/23 vitamin B complex 1 tablet PO DAILY 04/15/22 04/03/23 multivitamin 1 tablet PO DAILY 12/02/22 04/03/23 Allergies Allergy/AdvReac Type Severity Reaction Status Date / Time Sulfa (Sulfonamide Allergy Intermediate Rash Verified 04/30/23 08:31 Antibiotics) Review of Systems Review of Systems: All systems reviewed & are unremarkable except as noted in HPI and below PMFSH Past Medical History Medical History CAD (coronary artery disease) History of gallbladder disease Hypertension Kidney disease Mixed hyperlipidemia Pre-diabetes Surgical History Surgical History H/O heart artery stent H/O hernia repair History of carpal tunnel surgery of left wrist (~11/19/22) History of reverse total replacement of left shoulder joint (~04/22/22) History of tonsillectomy Family History Family History Father Family history of cardiovascular disease Family history of arthritis Patient's father is , Onset Age: 83 Sibling Family history of kidney disease Acute myocardial infarction Mother Family history of sudden Social History Social History Smoking status: Never smoker Second hand tobacco smoke exposure: No Alcohol intake: current Alcohol use details: 1-2 BEERS/YEAR Substance use: never Substance use type: does not use Lack of Transportation: No Lack of Food: Never True Current Housing: I Have Housing Concerned About Future Housing: No Difficulty Paying Gas/Electric Bills: No Difficulty Paying for Meds: No Currently Unemployed: No Education: High School Diploma/GED Difficulty w/ Childcare or Family Care: No Living arrangements: with family Spiritual care concerns: No Exam Const: General: no acute distress and alert Nutritional Appearance: well nourished Orientation/consciousness: patient oriented x3 HENMT: Head: normal to inspection Mouth: Yes lip normal and Yes moist mucous membranes Throat: uvula midline Other: tongue swelling, soft floor Eyes: EOM: EOMs intact bilaterally Chest: Chest palpation & inspection: normal inspection of the chest Resp: Effort & Inspection: normal respiratory effort Auscultation: clear to auscultation bilaterally Cardio: Rate: regular rate Rhythm: regular rhythm Heart sounds: no murmurs GI: GI Palp: Yes Soft to palpation, No Tenderness to palpation present (GI), No Guarding due to palpation present (GI) and No Rigid due to palpation Auscultation: normal bowel sounds Neuro: General: patient oriented x3, moves all extremities and CN's II-XI intact bilaterally Psych: Mental Status: mental status grossly normal Affect: normal affect Attitude: cooperative Course Reevaluation(s) Reevaluation #1
[2023-04-30] MEDS: AMPICILLIN SULB 3 GM/NS 100 ML 3 GM/100 ML VIAL IVPB ×2 (12:41→20:08)
[2023-04-30] MEDS: LACTATED RINGERS 1,000 ML 125 ML IV CONT (14:53)
--- NOTE | 2023-04-30 14:58 | PM.IMHP ---
H&P: HPI History of Present Illness Date/Time: 04/30/23 14:58 Chief Complaint: Tongue Swelling Narrative: 82-year-old male presents here with tongue swelling with past medical history of high blood pressure, aortic aneurysm, GERD, gout, hyperlipidemia, and prediabetes. Patient reports that he had dental work on Friday, teeth old from left lower due to being broken. Patient felt that he had maybe slight swelling last night, however he woke up this morning with significant tongue swelling. He currently denies shortness of breath, difficulty swallowing, drooling. He denies fever, chills, nausea, vomiting, chest pain, shortness of breath. Was not prescribed antibiotics pre or post teeth extraction. Has a history of a tonsillectomy. Not currently on any LANIE inhibitors and has had no previous episodes of oral/facial swelling. Review of Systems Review of Systems: All systems reviewed & are unremarkable except as noted in HPI and below PMFSH Past Medical History Medical History (Updated 05/01/23 @ 00:47 by Diane Zelaya APRN) Abdominal aortic aneurysm (AAA) 7.1 cm CAD (coronary artery disease) Gastro-esophageal reflux disease with esophagitis Hypertension Idiopathic gout, unspecified site Kidney disease Mixed hyperlipidemia Pre-diabetes Surgical History Surgical History (Updated 05/01/23 @ 00:47 by Diane Zelaya APRN) History of carpal tunnel surgery of left wrist (~11/19/22) History of heart artery stent History of hernia repair History of reverse total replacement of left shoulder joint (~04/22/22) History of tonsillectomy Family History Family History Father Family history of cardiovascular disease Family history of arthritis Patient's father is , Onset Age: 83 Sibling Family history of kidney disease Acute myocardial infarction Mother Family history of sudden Social History Social History (Updated 05/01/23 @ 00:47 by Diane Zelaya APRN) Social History: Currently lives at home with his . Surrogate decision maker: Priya Castorena, spouse. May also call Philly Castorena, daughter. Full Code. Smoking status: Never smoker Second hand tobacco smoke exposure: No Alcohol intake: never Alcohol use details: 1-2 BEERS/YEAR Substance use: never Substance use type: does not use Lack of Transportation: No Lack of Food: Never True Current Housing: I Have Housing Concerned About Future Housing: No Difficulty Paying Gas/Electric Bills: No Difficulty Paying for Meds: No Currently Unemployed: No Education: High School Diploma/GED Difficulty w/ Childcare or Family Care: No Living arrangements: with family Spiritual care concerns: No Meds Home Medications and Allergies Home Medications Medication Instructions Recorded Confirmed Type aspirin 81 mg tablet,delayed 81 mg PO DAILY 02/01/20 04/30/23 History release (Adult Low Dose Aspirin) omega-3 fatty acids 1,000 mg PO DAILY 04/01/22 04/30/23 History vitamin B complex 1 tablet PO DAILY 04/15/22 04/30/23 History multivitamin 1 tablet PO DAILY 12/02/22 04/30/23 History allopurinol 300 mg tablet 300 mg PO DAILY 04/30/23 04/30/23 History amlodipine 5 mg tablet 5 mg PO DAILY 04/30/23 04/30/23 History indapamide 2.5 mg tablet 2.5 mg PO DAILY 04/30/23 04/30/23 History omeprazole 20 mg capsule,delayed 20 mg PO DAILY 04/30/23 04/30/23 History release simvastatin 40 mg tablet 40 mg PO DAILY 04/30/23 04/30/23 History Allergies Allergy/AdvReac Type Severity Reaction Status Date / Time Sulfa (Sulfonamide Allergy Intermediate Rash Verified 04/30/23 08:31 Antibiotics) Vital Signs Vital Signs - 24 hr 04/30/23 08:28 04/30/23 09:16 04/30/23 09:31 Temperature 97.6 F Pulse Rate 59 L 67 60 Respiratory Rate 16 22 H 25 H Blood Pressure 142/91 H 130/67 118/65 Pulse Oximetry 97 97 96 04/30/23 09:45 1
--- NOTE | 2023-04-30 17:39 | PC.NURSE ---
Pt removed IV and called . stated he told her to come pick him up. Pt is A&0x2. Pt is confused.
--- NOTE | 2023-04-30 18:42 | PC.NURSE ---
Pt is confused. states he has confusion at home sometimes. Pt is walking around ER with tech. Pt was A&0 x4 on arrival.
--- NOTE | 2023-04-30 21:17 | ADMGEN ---
This patient, Benjamin Castorena Jr., was admitted to IMU Room 232-01. Patient/family oriented to hospital policies and general routines including ID bracelet, bed and alarms, visiting hours, pain management, procedures, bathroom and other care routines, personal items, smoking policy, room service/diet, and visiting hours. Information on how to activate the Rapid Response Team has been discussed. Patient/Family are encouraged to report perceived risks to care and to ask questions if they do not understand what they are told or what they should do.
[2023-05-01] VITALS (11 sets, daily range): BP systolic 106–119; BP diastolic 65–69; PULSE 57–76; RESP 16–22; TEMP 36.3–36.6; O2SAT 94–96
[2023-05-01] MEDS: LACTATED RINGERS 1,000 ML 125 ML IV CONT (01:03)
[2023-05-01] MEDS: AMPICILLIN SULB 3 GM/NS 100 ML 3 GM/100 ML VIAL IVPB ×3 (01:03→13:56)
[2023-05-01 05:22] LABS: Basophils Percent Auto 0.1 % (0.2-1.2); Hematocrit 39.2 % (42.0-52.0); Hemoglobin 13.5 g/dL (14.0-18.0); Immature Granulocyte Absolute 0.07 K/mm3 (0.00-0.031); Immature Granulocyte Percent A 0.6 % (0-0.5); Lymphocytes Absolute Auto 1.25 K/mm3 (0.9-3.2); Lymphocytes Percent Auto 10.9 % (18.3-44.2); Mean Corpuscular HGB Conc 34.4 g/dl (32-36); Mean Corpuscular Hemoglobin 32.8 pg (26-34); Mean Corpuscular Volume 95.1 fl (80-100); Mean Platelet Volume 11.1 fl (7.4-10.4); Monocytes Absolute Auto 0.2 K/mm3 (0.1-0.6); Monocytes Percent Auto 1.7 % (2.6-8.5); Neutrophils Percent Auto 86.7 % (45.5-73.1); Platelet Count Result 169 k/mm3 (150-375); Red Blood Count 4.12 M/mm3 (4.6-6.20); White Blood Count 11.5 K/mm3 (4.5-10.0)
[2023-05-01 05:39] LABS: Alanine Aminotransferase 21 U/L (6-50); Albumin Level 3.9 g/dL (3.5-5.1); Alkaline Phosphatase 61 U/L (38-126); Anion Gap 7 mmol/L (8-16); Aspartate Amino Transferase 33 U/L (17-59); Blood Urea Nitrogen 18 mg/dL (9-20); Calcium 8.9 mg/dL (8.4-10.2); Carbon Dioxide 29 mmol/L (22-30); Chloride 101 mmol/L (98-107); Estimated CRCL calculation 54 ml/min; Estimated Glomerular Filt Rate > 60; Glucose 137 mg/dL (65-110); Potassium 3.4 mmol/L (3.4-5.0); Sodium 137 mmol/L (137-145)
[2023-05-01] MEDS: VITAMIN B COMPLEX CAPSULE 1 CAP PO (08:45)
[2023-05-01] MEDS: OMEGA 3 POLYUNSAT FATTY ACIDS 1 GM CAP PO (08:45)
[2023-05-01] MEDS: INDAPAMIDE 2.5 MG TABLET PO (08:45)
[2023-05-01] MEDS: amLODIPine BESYLATE 5 MG TABLET PO (08:45)
[2023-05-01] MEDS: SIMVASTATIN 20 MG TABLET 40 MG PO (08:45)
[2023-05-01] MEDS: MULTIVITAMINS THERAPEUTIC TAB (*BKC) 1 TABLET PO (08:45)
[2023-05-01] MEDS: allopurinoL 300 MG TABLET PO (08:45)
[2023-05-01] MEDS: PANTOPRAZOLE 40 MG TABLET PO (08:46)
--- NOTE | 2023-05-01 13:57 | PM.DS ---
DS: Admitting Diagnosis Discharge Date 05/01 Admitting Diagnosis tongue swelling DS: Discharge Diagnosis Discharge Diagnosis (1) Tongue swelling: Code(s): R22.0 - Localized swelling, mass and lump, head Status: Acute DS: Summary Hospital Course Hospital Course: 82M w/ PMH HTN, aortic aneurysm, GERd, gout, HLD, and prediabetes presented shortly after tooth extractions on left lower side with tongue swelling. He was given steroids, abx, benadryl, h2 jolie on admission and admitted for observation. On day of discharge, 05/01 he is back to his baseline, protecting airway. Likely reactive swelling to his procedure, no sustained angioedema or infection. he will be discharged in stable condition to home as usual and advised to return if his symptoms return. he was in agreement and understanding with this Time Spent with Patient Time attestation: Total time spent providing and/or coordinating discharge services: Exam Const: General: comfortable and no acute distress HENMT: Mouth: Yes moist mucous membranes Other: no orolingual edema. able to swallow, spit, cough, talk no lesions or signs of infection Neck: Neck: supple Resp: Effort & Inspection: normal respiratory effort Auscultation: clear to auscultation bilaterally Cardio: Rate: regular rate Rhythm: regular rhythm GI: Inspection: non-distended GI Palp: Yes Soft to palpation, No Firmness to palpation present (GI) and No Tenderness to palpation present (GI) Extrem: General: no edema DS: Data Data Completed and Pending Labs on day of discharge: Labs from last 24 hours 05/01/23 05:09 WBC 11.5 H RBC 4.12 L Hgb 13.5 L Hct 39.2 L MCV 95.1 MCH 32.8 MCHC 34.4 RDW 14.0 Plt Count 169 MPV 11.1 H Immature Gran % (Auto) 0.6 H Neut % (Auto) 86.7 H Lymph % (Auto) 10.9 L [place] % (Auto) 1.7 L Eos % (Auto) 0.0 Baso % (Auto) 0.1 L Lymph # (Auto) 1.25 [place] # (Auto) 0.2 Eos # (Auto) 0.0 Baso # (Auto) 0.0 Abs Immat Gran (auto) 0.07 H Absolute Neuts (auto) 10.0 H Absolute Nucleated RBC 0.0 Nucleated RBC % 0.0 Sodium 137 Potassium 3.4 Chloride 101 Carbon Dioxide 29 Anion Gap 7 L BUN 18 Creatinine 0.80 Estim Creat Clear Calc 54 Estimated GFR > 60 Glucose 137 H Calcium 8.9 Total Bilirubin 1.0 AST 33 ALT 21 Alkaline Phosphatase 61 Total Protein 7.0 Albumin 3.9 Discharge Plan Discharge Attending physician on discharge: Meche Sorenson Discharging Clinician: Meche Sorenson Patient Disposition: Home, Self-Care Activity: no preference Diet: as tolerated Discharge Instructions: Angioedema Patient Instructions: Antibiotic Form, Angioedema (GEN) Stand Alone Forms: General Discharge Information Follow-up/Referrals: Enoc Arora MD [Primary Care Provider] - 1 Week (tongue swelling) Discharge Medications: Continued aspirin [Adult Low Dose Aspirin] 81 mg tablet,delayed release (DR/EC) 81 mg PO DAILY Patient Comments: HS vitamin B complex Tablet 1 tablet PO DAILY Patient Comments: in morning multivitamin Tablet 1 tablet PO DAILY omega-3 fatty acids Capsule 1,000 mg PO DAILY indapamide 2.5 mg tablet 2.5 mg PO DAILY amlodipine 5 mg tablet 5 mg PO DAILY simvastatin 40 mg tablet 40 mg PO DAILY omeprazole 20 mg capsule,delayed release(DR/EC) 20 mg PO DAILY allopurinol 300 mg tablet 300 mg PO DAILY Date of admission: 04/30/23 12:53 Primary Care Provider: Enoc Arora Admitting Provider: Erna Albert Attending physician on admission: Erna Albert Condition: Stable
== END 2023-05-01 15:09 | disposition home or self-care (01) ==
LOC: ANHED 08:59 → ANHIMU 19:10
PROVIDERS: Admitting Provider Internal Medicine; Emergency Provider General Practice; PCP Emergency Medicine; Visit Provider General Practice
DX: R22.0 Localized swelling, mass and lump, head (principal); D72.829 Elevated white blood cell count, unspecified; I25.10 Atherosclerotic heart disease of native coronary artery without angina pectoris; Z95.5 Presence of coronary angioplasty implant and graft; I71.40 Abdominal aortic aneurysm, without rupture, unspecified; I10 Essential (primary) hypertension; K21.9 Gastro-esophageal reflux disease without esophagitis; M10.9 Gout, unspecified; E78.2 Mixed hyperlipidemia; R73.03 Prediabetes; F10.90 Alcohol use, unspecified, uncomplicated; Z79.82 Long term (current) use of aspirin; Z79.899 Other long term (current) drug therapy
CPT/HCPCS: 36415; 70491; 80053; 85025; 85610; 85730; 96361; 96365; 96366; 96372; 96375; 99285; A9270; G0378; J0171; J0295; J1200; J2930; J7120; Q9967

== ENCOUNTER 2023-06-23 12:53 | Outpatient (CLI) | payer MEDICARE, SELFPAY ==
[2023-06-23 20:47] LABS: Alanine Aminotransferase 20 U/L (6-50); Albumin Level 4.4 g/dL (3.5-5.1); Alkaline Phosphatase 78 U/L (38-126); Anion Gap 11 mmol/L (8-16); Aspartate Amino Transferase 43 U/L (17-59); Bilirubin,Total 0.9 mg/dL (0.2-1.3); Blood Urea Nitrogen 15 mg/dL (9-20); Carbon Dioxide 29 mmol/L (22-30); Chloride 102 mmol/L (98-107); Estimated Glomerular Filt Rate > 60; Glucose 105 mg/dL (65-110); Potassium 3.3 mmol/L (3.4-5.0); Sodium 142 mmol/L (137-145)
== END 2023-06-23 12:54 | disposition home or self-care (01) ==
LOC: ANHGOSHLAB 12:55
PROVIDERS: PCP Emergency Medicine; Visit Provider Emergency Medicine
DX: E87.6 Hypokalemia (principal); E78.2 Mixed hyperlipidemia; I25.10 Atherosclerotic heart disease of native coronary artery without angina pectoris; R73.01 Impaired fasting glucose
CPT/HCPCS: 36415; 80053

== ENCOUNTER 2023-07-15 08:13 | Outpatient (CLI) | payer MEDICARE, SELFPAY ==
[2023-07-15 19:17] LABS: Anion Gap 12 mmol/L (8-16); Blood Urea Nitrogen 15 mg/dL (9-20); Calcium 9.7 mg/dL (8.4-10.2); Carbon Dioxide 32 mmol/L (22-30); Chloride 95 mmol/L (98-107); Estimated Glomerular Filt Rate > 60; Glucose 97 mg/dL (65-110); Magnesium 2.1 mg/dL (1.6-2.3); Sodium 139 mmol/L (137-145)
== END 2023-07-15 08:14 | disposition home or self-care (01) ==
LOC: ANHGOSHLAB 08:15
PROVIDERS: PCP Emergency Medicine; Visit Provider Physician Assistant
DX: E87.6 Hypokalemia (principal)
CPT/HCPCS: 36415; 80048; 83735

== ENCOUNTER 2023-07-25 08:43 | Outpatient (CLI) | payer MEDICARE, SELFPAY ==
[2023-07-25 20:06] LABS: Anion Gap 11 mmol/L (8-16); Blood Urea Nitrogen 11 mg/dL (9-20); Calcium 9.6 mg/dL (8.4-10.2); Carbon Dioxide 27 mmol/L (22-30); Chloride 100 mmol/L (98-107); Estimated Glomerular Filt Rate > 60; Glucose 111 mg/dL (65-110); Potassium 3.4 mmol/L (3.4-5.0); Sodium 138 mmol/L (137-145)
== END 2023-07-25 08:44 | disposition home or self-care (01) ==
PROVIDERS: PCP Emergency Medicine; Visit Provider Family Medicine
DX: E87.6 Hypokalemia (principal)
CPT/HCPCS: 36415; 80048

== ENCOUNTER → 2023-09-03 09:26 | Outpatient (CLI) | payer MEDICARE, SELFPAY ==
--- NOTE | ~2023-09-03 | XR_ITS ---
Left ankle Technique: AP, oblique, and lateral views were obtained. Clinical History: Instability Findings: No acute fracture or dislocation is seen. Osseous alignment is anatomic. Ankle mortise and other visualized joint spaces are preserved. Soft tissues are otherwise unremarkable. Impression: Unremarkable left ankle. Reviewed, dictated and finalized at location . [facility] Impression: Unremarkable left ankle.
--- NOTE | ~2023-09-03 | XR_ITS ---
Right ankle Technique: AP, oblique, and lateral views were obtained. Clinical History: Instability Findings: No acute fracture or dislocation is seen. Osseous alignment is anatomic. Ankle mortise and other visualized joint spaces are preserved. Soft tissues are otherwise unremarkable. Impression: Unremarkable right ankle. Reviewed, dictated and finalized at location . LABORER Impression: Unremarkable right ankle.
--- NOTE | ~2023-09-03 | XR_ITS ---
2 views of the left calcaneus CLINICAL HISTORY: Instability FINDINGS: No fracture or dislocation seen. Joint spaces are preserved. Soft tissues are unremarkable aside from vascular calcifications. IMPRESSION: No significant abnormality seen. Reviewed, dictated and finalized at location M. [employer] PA[employer] REFINISHER
--- NOTE | ~2023-09-03 | XR_ITS ---
2 views of the right calcaneus CLINICAL HISTORY: Instability FINDINGS: No fracture or dislocation seen. Joint spaces are preserved. Soft tissues are unremarkable aside from vascular calcifications. IMPRESSION: No significant abnormality seen. Reviewed, dictated and finalized at location M. CT SERVICE PROVIDER
== END ==
PROVIDERS: PCP Emergency Medicine; Visit Provider Emergency Medicine
DX: M25.371 Other instability, right ankle (principal); M25.372 Other instability, left ankle
CPT/HCPCS: 73610; 73650